=== PATIENT | male | born 2000 | race Hispanic/Latino ===

== ENCOUNTER 2023-02-02 20:22 | Emergency (ER) | payer SELFPAY ==
[2023-02-02] MEDS ORDERED: Fluorescein Opthalmic Strip ONE (20:33)
[2023-02-02] MEDS ORDERED: Proparacaine 0.5% Opth 15 ML BOT ONE (20:34)
== END 2023-02-02 20:55 | disposition home or self-care (01) ==
LOC: NAV ERS 20:22
DX: T15.92XA Foreign body on external eye, part unspecified, left eye, initial encounter (principal); F17.210 Nicotine dependence, cigarettes, uncomplicated
CPT/HCPCS: 99283